=== PATIENT | male | born 1965 | race American Indian/Alaskan Native ===

== ENCOUNTER 2016-09-16 02:19 | Emergency (ER) | payer SELFPAY | END 2016-09-16 02:25 | disposition left against medical advice (07) | LOC: ED 02:19 | DX: Z04.1 Encounter for examination and observation following transport accident (principal); V89.2XXA Person injured in unspecified motor-vehicle accident, traffic, initial encounter; Y92.488 Other paved roadways as the place of occurrence of the external cause; Y93.89 Activity, other specified; Y99.8 Other external cause status ==

== ENCOUNTER 2017-02-15 18:48 | Emergency (ER) | payer MEDICAID ==
[2017-02-15 20:39] LABS: Basophils % (Auto) 0.7 % (0.0-1.8); Eosinophils % (Auto) 1.2 % (0.0-4.3); Hematocrit 39.4 % (35.5-45.6); Hemoglobin 13.3 gm/dl (11.8-15.2); Mean Corpuscular HGB Conc 34 % (32-34); Mean Corpuscular Hemoglobin 31 pg (28-32); Mean Corpuscular Volume 93 fl (84-94); Platelet Count 228 K/mm3 (140-440); Red Blood Count 4.26 M/mm3 (3.65-5.03); Red Cell Distribution Width 13.9 % (13.2-15.2)
[2017-02-15 21:00] LABS: Anion Gap 16 mmol/L; BUN/Creatinine Ratio 11; Blood Urea Nitrogen 10 mg/dL (9-20); Calcium 9.6 mg/dL (8.4-10.2); Carbon Dioxide 27 mmol/L (22-30); Chloride 102.9 mmol/L (98-107); Glucose 100 mg/dL (75-100); Sodium 142 mmol/L (137-145)
[2017-02-16 04:00] VITALS: BP 112/53
== END 2017-02-16 07:12 | disposition left against medical advice (07) ==
LOC: ED 18:48
DX: M43.6 Torticollis (principal); Z53.21 Procedure and treatment not carried out due to patient leaving prior to being seen by health care provider
CPT/HCPCS: 36415; 80048; 85025; G0480; 80320

== ENCOUNTER 2017-03-04 02:19 | Emergency (ER) | payer MEDICAID ==
[2017-03-04 03:05] LABS: Basophils % (Auto) 0.6 % (0.0-1.8); Eosinophils % (Auto) 1.4 % (0.0-4.3); Hematocrit 39.1 % (35.5-45.6); Hemoglobin 13.5 gm/dl (11.8-15.2); Mean Corpuscular HGB Conc 35 % (32-34); Mean Corpuscular Hemoglobin 32 pg (28-32); Mean Corpuscular Volume 92 fl (84-94); Platelet Count 217 K/mm3 (140-440); Red Blood Count 4.27 M/mm3 (3.65-5.03); Red Cell Distribution Width 13.9 % (13.2-15.2); White Blood Count 4.3 K/mm3 (4.5-11.0)
[2017-03-04 03:21] LABS: Alanine Aminotransferase 40 units/L (7-56); Albumin 4.2 g/dL (3.9-5); Albumin/Globulin Ratio 1.5 %; Alkaline Phosphatase 110 units/L (35-129); Anion Gap 19 mmol/L; BUN/Creatinine Ratio 16; Blood Urea Nitrogen 13 mg/dL (9-20); Calcium 9.2 mg/dL (8.4-10.2); Carbon Dioxide 23 mmol/L (22-30); Chloride 103.8 mmol/L (98-107); Glucose 89 mg/dL (75-100); Lipase 22 units/L (13-60); Potassium 3.7 mmol/L (3.6-5.0); Sodium 142 mmol/L (137-145)
[2017-03-04 03:27] LABS: Urine Drugs of Abuse Note Disclamer
[2017-03-04 03:35] VITALS: BP 118/77
[2017-03-04 04:17] LABS: Mucus,Urine FEW /HPF; RBC,Urine < 1.0 /HPF (0.0-6.0)
[2017-03-04 04:22] LABS: Bilirubin,Urine Negative (Negative); Ketones,Urine Negative (Negative)
[2017-03-04 04:23] LABS: Blood,Urine Small (Negative); Leukocyte Esterase,Urine Negative (Negative); Nitrite,Urine Negative (Negative); Urobilinogen,Urine < 2.0 mg/dL (<2.0)
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
== END 2017-03-04 04:00 | disposition left against medical advice (07) ==
LOC: ED 02:19
DX: R10.9 Unspecified abdominal pain (principal); I10 Essential (primary) hypertension; E11.9 Type 2 diabetes mellitus without complications
CPT/HCPCS: 36415; 80053; 80307; 81001; 83690; 85025; 99283; G0480; 80320

== ENCOUNTER 2017-04-28 21:24 | Emergency (ER) | payer MEDICAID ==
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
[2017-04-29 03:28] VITALS: BP 100/68
[2017-04-29 03:29] LABS: Basophils % (Auto) 0.4 % (0.0-1.8); Eosinophils # (Auto) 0.1 K/mm3 (0.0-0.4); Hematocrit 36.9 % (35.5-45.6); Hemoglobin 12.5 gm/dl (11.8-15.2); Lymphocytes # (Auto) 1.8 K/mm3 (1.2-5.4); Lymphocytes % (Auto) 26.6 % (13.4-35.0); Mean Corpuscular HGB Conc 34 % (32-34); Mean Corpuscular Hemoglobin 31 pg (28-32); Mean Corpuscular Volume 92 fl (84-94); Monocytes # (Auto) 0.7 K/mm3 (0.0-0.8); Platelet Count 270 K/mm3 (140-440)
--- NOTE | 2017-04-29 03:46 | Cat Scan Report ---
FINAL REPORT EXAM: CT HEAD/BRAIN WO CON HISTORY: vasquez TECHNIQUE: Routine axial imaging was obtained of the brain without IV contrast. There are no previous examinations available for comparison. FINDINGS: The ventricular system is appropriate in size and is symmetric. There is no evidence of acute stroke or hemorrhage. The basal cisterns appear normal. The sinuses reveal mild secretions in the maxillary sinuses bilaterally. The mastoid air cells are well pneumatized. The calvarium appears normal. IMPRESSION: No acute intracranial process. Mild secretions in both maxillary sinuses.
[2017-04-29] MEDS ORDERED: VIBRAMYCIN PO ONE (04:23)
[2017-04-29 04:30] LABS: Alanine Aminotransferase 24 units/L (7-56); Albumin 3.8 g/dL (3.9-5); BUN/Creatinine Ratio 10; Blood Urea Nitrogen 10 mg/dL (9-20); Calcium 9.1 mg/dL (8.4-10.2); Hemolysis Index 3
== END 2017-04-29 05:33 | disposition home or self-care (01) ==
LOC: ED 21:24
DX: J32.9 Chronic sinusitis, unspecified (principal); R51 Headache; R42 Dizziness and giddiness; R09.81 Nasal congestion
CPT/HCPCS: 36415; 70450; 80053; 85025; 96372; 99284; J2930